=== PATIENT | female | born 1995 | race Caucasian/White ===

== ENCOUNTER 2017-06-11 21:31 | Emergency (ER) | payer SELFPAY ==
[~2017-06-11] VITALS: Ht 154.9 cm; Wt 50.0 kg
[2017-06-12] MEDS ORDERED: KETOROLAC 60MG/2ML VIAL IM ONE (00:30)
[2017-06-12 01:07] VITALS: BP 134/86
== END 2017-06-12 01:00 | disposition home or self-care (01) ==
LOC: ER 21:44
DX: S16.1XXA Strain of muscle, fascia and tendon at neck level, initial encounter (principal); R56.9 Unspecified convulsions; R10.9 Unspecified abdominal pain; V49.50XA Passenger injured in collision with unspecified motor vehicles in traffic accident, initial encounter; Y93.89 Activity, other specified; Y92.89 Other specified places as the place of occurrence of the external cause; Y99.8 Other external cause status
CPT/HCPCS: 72040; 72100; 81025; 96372; 99284; J1885